=== PATIENT | male | born 1960 | race Caucasian/White ===

== ENCOUNTER 2021-11-29 05:51 | Day surgery (SDC) | payer OTHER ==
[~2021-11-29] VITALS: Ht 177.8 cm; Wt 156.8 kg
[2021-11-29] MEDS ORDERED: SODIUM CHLORIDE 0.9% 1,000 ML IV ONE (06:30)
[2021-11-29] MEDS ORDERED: SODIUM CHLORIDE 0.9% 1,000 ML ONE (07:11)
[2021-11-29 07:54] LABS: COVID AG,FIA SOURCE NASAL SWAB
[2021-11-29] MEDS ORDERED: FentaNYL CITRATE PF 100 MCG/2 ML VIAL ONE (08:08)
[2021-11-29] MEDS ORDERED: MIDAZOLAM HCL 5 MG/ML VIAL ONE (08:08)
[2021-11-29 08:16] LABS: GLUCOMETER DEV NAME(LOC) SDS.; GLUCOSE,POINT OF CARE 191 MG/DL (70-110)
[2021-11-29] MEDS ORDERED: MethylPREDNISolone SOD SUCC 125 MG/2 ML VIAL IVP ONE (09:00)
[2021-11-29] MEDS ORDERED: MethylPREDNISolone SOD SUCC 125 MG/2 ML VIAL ONE (09:38)
[2021-11-29] MEDS ORDERED: OXYGEN THERAPY IH SCH (20:00)
== END 2021-11-29 11:02 | disposition home or self-care (01) ==
LOC: SURGERY 05:51 → EDSEX 05:51 → SURGERY 11:02
PROVIDERS: ATTEND Internal Medicine Critical Care Medicine
DX: J38.4 Edema of larynx (principal); B37.0 Candidal stomatitis; Z79.899 Other long term (current) drug therapy
CPT/HCPCS: 31623; 31624; 71045; 82962; 87015; 87070; 87101; 87206; 87220; 87426; 88112; 88184; 88185; 88312; C9803; J2250; J2930; J3010; J7030